=== PATIENT | female | born 1950 | race Caucasian/White ===

== ENCOUNTER → 2018-07-14 10:35 | Outpatient (CLI) | payer OTHER, SELFPAY ==
--- NOTE | 2018-07-14 | DI.RAD.S_ITS ---
PROCEDURE: XR CHEST 2V INDICATIONS: COUGH TECHNIQUE: 2 views of the chest were acquired. COMPARISON: [facility], , CHEST 2 VIEW, 12/23/2015, 16:24. FINDINGS: Surgical changes and devices: None. Lungs and pleura: Lungs are clear. No pleural effusions or pneumothorax. Mediastinum: Mediastinal contours are normal. Heart size is normal. Bones and chest wall: Scoliosis. No suspicious bony abnormalities. Soft tissues appear unremarkable. IMPRESSION: No acute cardiopulmonary disease. Dictated by: Boogie Crouch M.D. on 07/14/2018 at 11:09 Approved by: Boogie Crouch M.D. on 07/14/2018 at 11:10
== END ==
PROVIDERS: PCP Nurse Practitioner Family; Visit Provider Nurse Practitioner Family
DX: R05 Cough (principal)
CPT/HCPCS: 71046; 87400

== ENCOUNTER → 2018-07-14 10:57 | Outpatient (REF) | payer OTHER, SELFPAY | LOC: LAB 10:57 | PROVIDERS: PCP Nurse Practitioner Family; Visit Provider Nurse Practitioner Family | DX: R05 Cough (principal) | CPT/HCPCS: 87400 ==

== ENCOUNTER → 2018-12-27 11:39 | Outpatient (CLI) | payer OTHER, SELFPAY ==
--- NOTE | 2018-12-27 | DI.RAD.S_ITS ---
PROCEDURE: XR CHEST 2V INDICATIONS: CHRONIC COUGH TECHNIQUE: 2 views of the chest were acquired. COMPARISON: [facility], CR, XR CHEST 2V, 07/14/2018, 10:54. FINDINGS: Surgical changes and devices: None. Lungs and pleura: Lungs are clear. No pleural effusions or pneumothorax. Mediastinum: Mediastinal contours are normal. Heart size is normal. Bones and chest wall: No suspicious bony abnormalities. Scoliosis of thoracolumbar spine is again seen, unchanged from prior study. Soft tissues appear unremarkable. IMPRESSION: No acute cardiopulmonary pathology. Dictated by: Memo Elias M.D. on 12/27/2018 at 13:05 Approved by: Memo Elias M.D. on 12/27/2018 at 13:06
== END ==
PROVIDERS: PCP Nurse Practitioner Family; Visit Provider Nurse Practitioner Family
DX: R05 Cough (principal)
CPT/HCPCS: 71046

== ENCOUNTER → 2019-05-04 08:11 | Outpatient (CLI) | payer OTHER, SELFPAY ==
--- NOTE | 2019-05-04 | DI.MG.S_ITS ---
BILATERAL DIGITAL SCREENING MAMMOGRAM 3D/2D WITH CAD: 05/04/2019 CLINICAL: Routine screening. Family history of breast cancer. Comparison is made to exams dated: 01/31/2018 mammogram, 01/17/2018 mammogram - [facility], 10/15/2016 mammogram, and 09/18/2015 mammogram - [facility]. The tissue of both breasts is heterogeneously dense. This may lower the sensitivity of mammography. Current study was also evaluated with a Computer Aided Detection (CAD) system. There is a biopsy clip in the right breast. No significant masses, calcifications, or other findings are seen in either breast. There has been no significant interval change. IMPRESSION: NEGATIVE There is no mammographic evidence of malignancy. A 1 year screening mammogram is recommended. This exam was interpreted at Station ID: [id number]. NOTE: For mammograms, a report in lay terms will be sent to the patient. Approximately 15% of breast malignancies will not be visualized mammographically. In the management of a palpable breast mass, a negative mammogram must not discourage biopsy of a clinically suspicious lesion. Electronically Signed By: Rosas marie/marcela:05/04/2019 18:15:47 letter sent: Normal Exam ACR BI-RADS Category 1: Negative 3341F
== END ==
PROVIDERS: PCP Nurse Practitioner Family; Visit Provider Nurse Practitioner Family
DX: Z12.31 Encounter for screening mammogram for malignant neoplasm of breast (principal); Z80.3 Family history of malignant neoplasm of breast
CPT/HCPCS: 77063; 77067

== ENCOUNTER → 2019-06-07 09:28 | Outpatient (CLI) | payer OTHER, SELFPAY ==
[2019-06-07 10:23] LABS: Add Manual Diff / Slide Review NO; Basophils Absolute Auto 100 /uL (0-100); Basophils Percent Auto 1.1 % (0-2); Eosinophils Absolute Auto 100 /uL (0-450); Eosinophils Percent Auto 1.8 % (2-4); Hematocrit 40.4 % (36-46); Hemoglobin 13.8 g/dL (12.0-16.0); Lymphocytes Absolute Auto 2300 /uL (1100-4500); Lymphocytes Percent Auto 34.6 % (25-40); Mean Corpuscular HGB Conc 34.2 % (30-36); Mean Corpuscular Hemoglobin 31.7 PG (26-34); Mean Corpuscular Volume 92.7 fL (80-100); Monocytes Absolute Auto 500 /uL (0-900); Monocytes Percent Auto 7.9 % (3-14); Neutrophils Absolute Auto 3600 /uL (1500-7000); Neutrophils Percent Auto 54.6 % (50-75); Platelet Count 307 X10^3/uL (150-400); Red Blood Cell Count 4.36 X10^6/uL (4.0-5.2); Red Cell Distribution Width 13.2 % (11.6-14.8); White Blood Cell Count 6.7 X10^3/uL (4.5-11.0)
[2019-06-07 10:58] LABS: Alanine Aminotransferase 22 IU/L (<35); Albumin 4.2 g/dL (3.5-5.0); Albumin Globulin Ratio 1.4 (1.0-2.8); Alkaline Phosphatase 106 U/L (38-126); Aspartate Aminotransferase 24 IU/L (14-36); Bilirubin Total 0.7 mg/dL (0.2-1.3); Blood Urea Nitrogen 16 mg/dL (7-17); Calcium 9.9 mg/dL (8.4-10.2); Carbon Dioxide 28 mmol/L (22-32); Chloride 104 mmol/L (98-107); Cholesterol 201 mg/dL (140-199); Estimated Glomerular Filt Rate > 60.0 mL/min (>60); Globulin 3.1 g/dL (1.7-4.1); Glucose 96 mg/dL (80-110); HDL Cholesterol 59 mg/dL (40-60); HEMOLYSIS < 15 (0-50); LDL Cholesterol Calculated 126 mg/dL (<100); Potassium 4.1 mmol/L (3.4-5.1); Sodium 140 mmol/L (137-145); Total Protein 7.3 g/dL (6.3-8.2); Triglycerides 79 mg/dL (35-150)
== END ==
PROVIDERS: PCP Internal Medicine; Referring Provider Internal Medicine; Visit Provider Internal Medicine
DX: I10 Essential (primary) hypertension (principal)
CPT/HCPCS: 36415; 80053; 80061; 85025

== ENCOUNTER → 2020-05-27 10:10 | Outpatient (CLI) | payer OTHER, SELFPAY ==
--- NOTE | 2020-05-27 | DI.MG.S_ITS ---
BILATERAL DIGITAL SCREENING MAMMOGRAM 3D/2D WITH CAD: 05/27/2020 CLINICAL: Routine screening. Family history of breast cancer. Comparison is made to exams dated: 01/17/2018 mammogram - [facility], 10/15/2016 mammogram, and 09/18/2015 mammogram - [facility]. The tissue of both breasts is heterogeneously dense. This may lower the sensitivity of mammography. Current study was also evaluated with a Computer Aided Detection (CAD) system. There is a biopsy clip in the right breast. There also are benign post operative findings in the left breast. No significant masses, calcifications, or other findings are seen in either breast. There has been no significant interval change. IMPRESSION: BENIGN There is no mammographic evidence of malignancy. A 1 year screening mammogram is recommended. This exam was interpreted at Station ID: [id number]. NOTE: For mammograms, a report in lay terms will be sent to the patient. Approximately 15% of breast malignancies will not be visualized mammographically. In the management of a palpable breast mass, a negative mammogram must not discourage biopsy of a clinically suspicious lesion. Electronically Signed By: Spenser corley/marcela:05/27/2020 11:15:36 letter sent: Normal Exam ACR BI-RADS Category 2: Benign Finding(s) 3342F
== END ==
PROVIDERS: PCP Internal Medicine; Referring Provider Internal Medicine; Visit Provider Internal Medicine
DX: Z12.31 Encounter for screening mammogram for malignant neoplasm of breast (principal); Z80.3 Family history of malignant neoplasm of breast; Z13.820 Encounter for screening for osteoporosis; M81.0 Age-related osteoporosis without current pathological fracture; Z78.0 Asymptomatic menopausal state; Z72.0 Tobacco use
CPT/HCPCS: 77063; 77067; 77080; 77081

== ENCOUNTER → 2020-07-11 09:16 | Outpatient (CLI) | payer MEDICARE, SELFPAY ==
[2020-07-11] MEDS: COVID-19 VACC, Ad26(JANSSEN)/PF 0.5 ML IM (09:23)
== END ==
PROVIDERS: PCP Internal Medicine; Visit Provider Internal Medicine
DX: Z23 Encounter for immunization (principal)
CPT/HCPCS: 0031A; 91303

== ENCOUNTER → 2021-08-22 10:38 | Outpatient (CLI) | payer OTHER, SELFPAY ==
--- NOTE | 2021-08-22 10:40 | DI.MG.S_ITS ---
BILATERAL DIGITAL SCREENING MAMMOGRAM 3D/2D WITH CAD: 08/22/2021 CLINICAL: Routine screening. Family history of breast cancer. Comparison is made to exams dated: 05/27/2020 mammogram, 05/04/2019 mammogram - [facility], 01/31/2018 mammogram, and 01/17/2018 mammogram - [facility]. The tissue of both breasts is heterogeneously dense. This may lower the sensitivity of mammography. Current study was also evaluated with a Computer Aided Detection (CAD) system. There is a biopsy clip in the right breast. There also are benign post operative findings in the left breast. No significant masses, calcifications, or other findings are seen in either breast. There has been no significant interval change. IMPRESSION: BENIGN There is no mammographic evidence of malignancy. A 1 year screening mammogram is recommended. This exam was interpreted at Station ID: [id number]. NOTE: For mammograms, a report in lay terms will be sent to the patient. Approximately 15% of breast malignancies will not be visualized mammographically. In the management of a palpable breast mass, a negative mammogram must not discourage biopsy of a clinically suspicious lesion. Electronically Signed By: Spenser corley/marcela:08/22/2021 14:39:03 letter sent: Normal Exam ACR BI-RADS Category 2: Benign Finding(s) 3342F
== END ==
PROVIDERS: PCP Internal Medicine; Referring Provider Internal Medicine; Visit Provider Internal Medicine
DX: Z12.31 Encounter for screening mammogram for malignant neoplasm of breast (principal); Z80.3 Family history of malignant neoplasm of breast
CPT/HCPCS: 77063; 77067

== ENCOUNTER → 2022-06-17 10:31 | Outpatient (CLI) | payer OTHER, SELFPAY | PROVIDERS: PCP Internal Medicine; Referring Provider Internal Medicine; Visit Provider Internal Medicine | DX: Z78.0 Asymptomatic menopausal state; Z13.820 Encounter for screening for osteoporosis; Z92.23 Personal history of estrogen therapy; Z92.241 Personal history of systemic steroid therapy | CPT/HCPCS: 77080 ==

== ENCOUNTER → 2022-08-24 14:04 | Outpatient (CLI) | payer OTHER, SELFPAY ==
--- NOTE | 2022-08-24 | DI.MG.S_ITS ---
BILATERAL DIGITAL SCREENING MAMMOGRAM 3D/2D WITH CAD: 08/24/2022 CLINICAL: Routine screening. Family history of breast cancer. Comparison is made to exams dated: 08/22/2021 mammogram, 05/27/2020 mammogram, and 05/04/2019 mammogram - [facility]. Both breasts are heterogeneously dense, which may obscure small masses (category c / 51-75% glandular tissue). Current study was also evaluated with a Computer Aided Detection (CAD) system. There is a biopsy clip in the right breast. There also are benign post operative findings in the left breast. No significant masses, calcifications, or other findings are seen in either breast. There has been no significant interval change. IMPRESSION: BENIGN There is no mammographic evidence of malignancy. A 1 year screening mammogram is recommended. Based on the Tyrer Cuzick model (a risk assessment model) the patient's lifetime risk is 3.8% and her 10 year risk is 3.1%. According to the ACR, ACS, and NCCN guidelines, an annual breast MRI exam along with mammogram is recommended if the patient's lifetime risk is 20% or greater. This exam was interpreted at Station ID: [id number]. NOTE: For mammograms, a report in lay terms will be sent to the patient. Approximately 15% of breast malignancies will not be visualized mammographically. In the management of a palpable breast mass, a negative mammogram must not discourage biopsy of a clinically suspicious lesion. Electronically Signed By: Spike ma/marcela:08/24/2022 14:29:49 letter sent: Normal Exam ACR BI-RADS Category 2: Benign Finding(s) 3342F
== END ==
PROVIDERS: PCP Internal Medicine; Referring Provider Internal Medicine; Visit Provider Internal Medicine
DX: Z12.31 Encounter for screening mammogram for malignant neoplasm of breast (principal)
CPT/HCPCS: 77063; 77067

== ENCOUNTER → 2023-02-16 09:45 | Outpatient (CLI) | payer OTHER, SELFPAY ==
--- NOTE | 2023-02-16 09:58 | DI.CT.S_ITS ---
PROCEDURE: CT KIDNEY URETER BLADDER (KUB) INDICATIONS: gross hematuria TECHNIQUE: Axial sections were acquired from the lung bases to the pubic symphysis. Coronal and sagittal reformats were performed. For radiation dose reduction, the following was used: automated exposure control, adjustment of mA and/or kV according to patient size. COMPARISON: None. FINDINGS: Image quality: Excellent. Lung bases: Unremarkable. Heart: No significant findings. URINARY: Right Kidney: Probable tiny vascular calcification, right hilum. Otherwise unremarkable. No other possible stones or hydronephrosis. Right Ureter: No hydroureter. Left Kidney: No stones or hydronephrosis. Left Ureter: No hydroureter. Bladder: Normal wall thickness. No stones. ABDOMEN: Liver: Unremarkable. Gallbladder: Unremarkable without calcified gallstones. Biliary ducts: Unremarkable. Pancreas: Unremarkable. Spleen: Unremarkable. Adrenal Glands: There is a 2.9 x 2.1 cm left adrenal nodule with a water Hounsfield measurement of 12.4, highly likely a lipid-laden left adrenal adenoma.. Stomach and Bowel: Extensive sigmoid diverticulosis without evidence of diverticulitis. Peritoneum: No abnormal intraperitoneal fluid. No free air. Ventral Wall: No hernia. Abdominal Nodes: No enlarged retroperitoneal or mesenteric lymph nodes. Vessels: Aorta and inferior vena cava are normal in size. PELVIS: Pelvic Organs: Unremarkable. Pelvic Nodes: Unremarkable. Miscellaneous: No inguinal hernias are seen. Bones: Unremarkable. S shaped thoracolumbar scoliotic curvature. No lytic or blastic bony lesions or compression fractures. IMPRESSION: 1. No renal stone, ureteral stone, or hydronephrosis. 2. Extensive sigmoid diverticulosis without evidence of diverticulitis. 3. No acute abdominal process. 4. A 2.9 cm left adrenal nodule is very likely a lipid-laden benign adenoma. Dictated by: Silvano Guaman M.D. on 02/16/2023 at 12:51 Approved by: Silvano Guaman M.D. on 02/16/2023 at 12:58
== END ==
PROVIDERS: PCP Internal Medicine; Referring Provider Internal Medicine; Visit Provider Internal Medicine
DX: R31.0 Gross hematuria (principal); K57.90 Diverticulosis of intestine, part unspecified, without perforation or abscess without bleeding; E27.8 Other specified disorders of adrenal gland
CPT/HCPCS: 74176

== ENCOUNTER → 2023-04-06 10:54 | Outpatient (CLI) | payer OTHER, SELFPAY | PROVIDERS: PCP Internal Medicine; Visit Provider Specialist | DX: R31.0 Gross hematuria (principal); N95.2 Postmenopausal atrophic vaginitis | CPT/HCPCS: 51798; 52000; 81002; 87086; 99215 ==

== ENCOUNTER → 2023-04-20 11:14 | Outpatient (CLI) | payer OTHER, SELFPAY ==
[2023-04-20 13:04] LABS: BUN Creatinine Ratio 32.1 (6-22); Blood Urea Nitrogen 17 mg/dL (7-17); Estimated Glomerular Filt Rate > 60 mL/min (>60)
== END ==
PROVIDERS: PCP Internal Medicine; Referring Provider Specialist; Visit Provider Specialist
DX: R31.0 Gross hematuria (principal)
CPT/HCPCS: 36415; 82565; 84520

== ENCOUNTER → 2023-04-23 12:49 | Outpatient (CLI) | payer OTHER, SELFPAY ==
--- NOTE | 2023-04-23 13:20 | DI.CT.S_ITS ---
PROCEDURE: CT IVP A/P W/WO INDICATIONS: Hematuria TECHNIQUE: Optional 5 mm thick noncontrast images acquired from the diaphragm to the symphysis pubis. After the administration of intravenous contrast, 5 mm thick images acquired from the diaphragm to the symphysis pubis after a 10-minute delay. 2 mm thick coronal and sagittal reformats were then performed of the kidneys and ureters. For radiation dose reduction, the following was used: automated exposure control, adjustment of mA and/or kV according to patient size. COMPARISON: [facility], CT, CT KIDNEY URETER BLADDER (KUB), 02/16/2023, 9:54. FINDINGS: Image quality: Diagnostic. Kidneys and Ureters: Both kidneys are normal in size, without hydronephrosis or nephrolithiasis. No perinephric fat stranding. There is normal bilateral renal enhancement. Small benign renal cysts. Renal calyces appear normal in morphology when filled with contrast. 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 The ureters are duplicated to the level of the bladder insertion. Opacified portions of both ureters demonstrate normal caliber Bladder: Bladder wall thickness is normal. No calcified bladder stones. OTHER: Lung bases: Unremarkable. Heart: No significant findings. Liver: No solid mass. A few small cysts. Gallbladder: Decompressed. Biliary ducts: No biliary dilation. Pancreas: No ductal dilation. Spleen: Size is within normal limits. Adrenal Glands: Left adrenal nodule measuring 2.4 cm, (4/62), unchanged. This measures 29 Hounsfield units on the noncontrast series. This measures 111 Hounsfield units. Stomach and Bowel: Normal colonic caliber, without significant wall thickening. Diverticulosis. The appendix is not identified. Peritoneum: No abnormal intraperitoneal fluid. No free air. Ventral Wall: No hernia. Abdominal Nodes: No retroperitoneal or mesenteric adenopathy by size criteria. Vessels: Aorta and inferior vena cava are normal in size. PELVIS: Pelvic Organs: Unremarkable. Pelvic Nodes: No enlarged lymph nodes. Miscellaneous: No inguinal hernias are seen. Bones: No aggressive osseous abnormality. Scoliosis. IMPRESSION: 1. No kidney stones. No hydronephrosis. 2. No solid renal mass. 3. No upper urinary tract filling defect. 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 4. Left adrenal nodule measuring 2.4 cm. Indeterminate. This could be more definitively characterized with adrenal protocol MRI. Dictated by: Dipak Ngo M.D. on 04/23/2023 at 15:05 Approved by: Dipak Ngo M.D. on 04/23/2023 at 15:19
== END ==
PROVIDERS: PCP Internal Medicine; Referring Provider Specialist; Visit Provider Specialist
DX: R31.0 Gross hematuria (principal); E27.9 Disorder of adrenal gland, unspecified
CPT/HCPCS: 74178; Q9967

== ENCOUNTER → 2023-09-17 14:46 | Outpatient (CLI) | payer OTHER, SELFPAY ==
--- NOTE | 2023-09-17 14:48 | DI.MG.S_ITS ---
BILATERAL DIGITAL SCREENING MAMMOGRAM 3D/2D WITH CAD: 09/17/2023 CLINICAL: Routine screening. Family history of breast cancer. Comparison is made to exams dated: 08/24/2022 mammogram, 08/22/2021 mammogram, and 05/27/2020 mammogram - [facility]. Both breasts are heterogeneously dense, which may obscure small masses (category c / 51-75% glandular tissue). Current study was also evaluated with a Computer Aided Detection (CAD) system. There is a biopsy clip in the right breast. There also are benign post operative findings in the left breast. No significant masses, calcifications, or other findings are seen in either breast. There has been no significant interval change. IMPRESSION: BENIGN There is no mammographic evidence of malignancy. A 1 year screening mammogram is recommended. Based on the Tyrer Cuzick model (a risk assessment model) the patient's lifetime risk is 3.6% and her 10 year risk is 3.2%. According to the ACR, ACS, and NCCN guidelines, an annual breast MRI exam along with mammogram is recommended if the patient's lifetime risk is 20% or greater. This exam was interpreted at Station ID: [id number]. NOTE: For mammograms, a report in lay terms will be sent to the patient. Approximately 15% of breast malignancies will not be visualized mammographically. In the management of a palpable breast mass, a negative mammogram must not discourage biopsy of a clinically suspicious lesion. Electronically Signed By: Spike ma/marcela:09/17/2023 16:55:31 letter sent: Normal Exam ACR BI-RADS Category 2: Benign Finding(s) 3342F
== END ==
PROVIDERS: PCP Internal Medicine; Referring Provider Internal Medicine; Visit Provider Internal Medicine
DX: Z12.31 Encounter for screening mammogram for malignant neoplasm of breast (principal); Z80.3 Family history of malignant neoplasm of breast; R92.333 Mammographic heterogeneous density, bilateral breasts
CPT/HCPCS: 77063; 77067

== ENCOUNTER → 2023-12-29 15:15 | Outpatient (CLI) | payer OTHER, SELFPAY ==
--- NOTE | 2023-12-29 15:16 | DI.CT.S_ITS ---
PROCEDURE: CT LUNG LOW DOSE SCREENING INDICATIONS: screening for lung cancer, personal hx of nicotine TECHNIQUE: Noncontrast 2.0-2.5 mm thick sections acquired from the pulmonary apices to the posterior costophrenic angles. 7 mm thick axial MIP, and 5 mm coronal and sagittal reformats were then acquired. For radiation dose reduction, the following was used: automated exposure control, adjustment of mA and/or kV according to patient size. COMPARISON: None. FINDINGS: Image quality: Diagnostic. Lower Neck: No enlarged lymph nodes. Thyroid: No thyroid nodules which require sonographic follow up, per consensus guidelines. Axillae: No enlarged lymph nodes. Chest Wall: Unremarkable. Bones: Severe degenerative change in the left shoulder with a collection calcifications anterior and inferior to the glenohumeral joint. Scoliosis. No vertebral body fractures. Lungs and Pleura: 3 mm anterolateral right upper lobe subpleural nodule containing calcification. Lateral right middle lobe subpleural 3 mm nodule also containing punctate calcification, 3/158. Occasional micro nodules left upper lobe too small to measure. Posterolateral left lower lobe subpleural calcification measuring 2 mm. No suspicious lung nodules. Mild emphysema. Mild bilateral central peribronchial thickening. No bronchiectasis. Occasional mucous plugging. No pleural effusion. Heart: Heart size is normal. No pericardial effusion. Moderate coronary artery calcification. Thoracic Vessels: The aorta and pulmonary arteries demonstrate normal size. Mild aortic arch calcification. Mediastinum and Payton: No enlarged lymph nodes. Esophagus: No wall thickening. No hiatal hernia. Upper Abdomen: Indistinct left adrenal mass measuring roughly 2.5 cm with Hounsfield units approximately 30. Visible portions of upper abdominal organs are otherwise normal. IMPRESSION: 3 mm right lung solid nodules with calcification are suggestive of granulomas. No suspicious lung nodules. Emphysema and peribronchial thickening suggesting chronic bronchitis. Moderate coronary artery calcification. 2.5 cm left adrenal mass which is indeterminate given Hounsfield units greater than 20. Consider adrenal protocol CT or MRI for further characterization. LUNG-RADS two; continued annual screening, if eligible. Clinically Significant Non-pulmonary Findings: Left adrenal mass, coronary artery calcification. Dictated by: Sandy Cervantes M.D. on 12/30/2023 at 10:12 Approved by: Sandy Cervantes M.D. on 12/30/2023 at 10:25
== END ==
PROVIDERS: PCP Internal Medicine; Referring Provider Internal Medicine; Visit Provider Internal Medicine
DX: Z12.2 Encounter for screening for malignant neoplasm of respiratory organs (principal); R91.8 Other nonspecific abnormal finding of lung field; J43.9 Emphysema, unspecified; I25.10 Atherosclerotic heart disease of native coronary artery without angina pectoris; E27.9 Disorder of adrenal gland, unspecified; I70.0 Atherosclerosis of aorta; M41.9 Scoliosis, unspecified; F17.210 Nicotine dependence, cigarettes, uncomplicated
CPT/HCPCS: 71271

== ENCOUNTER → 2024-01-10 07:37 | Outpatient (CLI) | payer OTHER, SELFPAY ==
--- NOTE | 2024-01-10 09:30 | DI.MRI.S_ITS ---
PROCEDURE: MR ABDOMEN ADRENAL PROTOCOL INDICATIONS: LEFT ADRENAL MASS TECHNIQUE: Coronal HASTE, axial 2-D FLASH in- and [id number] with subtractions from the hepatic dome to the iliac crests. COMPARISON: [facility], CT, CT LUNG LOW DOSE SCREENING, 12/29/2023, 15:25. FINDINGS: Image quality: Diagnostic. Adrenal Glands: 2.8 centimeter left adrenal nodule without signal dropout on the out of phase sequence. Additionally, there is small focus of T1 hyperintense signal (series 7, image 38). OTHER: Lung bases: Unremarkable. Liver: No solid mass. Gallbladder: No gallstones or wall thickening. Biliary ducts: No biliary dilation. Pancreas: No ductal dilation. Spleen: Size is within normal limits. Kidneys and Ureters: No hydronephrosis. No solid mass. No complex renal cystic lesion which requires follow up. Stomach and Bowel: Normal colonic caliber, without significant wall thickening. Colonic diverticulosis without evidence of diverticulitis. Peritoneum: No abnormal intraperitoneal fluid. No free air. Ventral Wall: No hernia. Abdominal Nodes: No retroperitoneal or mesenteric adenopathy by size criteria. Vessels: Aorta and inferior vena cava are normal in size. Pelvis: No pelvic mass. Bones: No aggressive osseous abnormality. IMPRESSION: 2.8 centimeter left adrenal nodule with indeterminate signal characteristics; there is no signal dropout on the out of phase sequence and there is a small focus of T1 hyperintense signal which may indicate hemorrhage. Findings do not indicate adrenal adenoma, indicate metastasis or pheochromocytoma. Consider tissue sampling. Dictated by: Jean Paul Funk M.D. on 01/10/2024 at 12:12 Approved by: Jean Paul Funk M.D. on 01/10/2024 at 12:15
--- NOTE | 2024-01-10 21:34 | DI.NM.S_ITS ---
DATE OF SERVICE: 01/10/2024 PROCEDURE: Exercise treadmill stress test without imaging. ORDERING PROVIDER: JASON Delgado INDICATIONS: The patient is a 73-year-old female with coronary calcification noted on CT scanning. FINDINGS: 1. The patient was able to exercise for 4 minutes 15 seconds on standard Pito protocol suggesting moderate-severely reduced exercise capacity with an GILBERTO of +44%, achieving 4.5 METs. 2. She had a normal heart rate and blood pressure response to exercise, achieving a maximum heart rate of 138 bpm (95% of her predicted maximum) and a peak blood pressure 194/60. Oxygen saturation remained 94% at peak exercise. 3. She had no chest pain or anginal symptoms with exercise but reported dizziness at peak exercise despite a normal heart rate and blood pressure. 4. Her resting ECG shows sinus rhythm with normal ST segments. There are no significant ST-segment shifts or arrhythmias. IMPRESSION: 1. Normal exercise treadmill stress test for ischemia although with moderate-severely reduced exercise capacity. 2. No angina or arrhythmias with stress, but reported limiting dizziness at peak exercise despite a normal heart rate and blood pressure. Ava Meade - /yuki/NM doc#: [id number]/job#: [id number] dd: 01/10/2024 16:58:00 dt: 01/10/2024 21:22:00 DICTATING /COPIES TO: Mario Barillas MD; JASON Delgado COPIES MNE: NATALY;
== END ==
LOC: DI 07:38
PROVIDERS: PCP Internal Medicine; Referring Provider Internal Medicine; Visit Provider Internal Medicine
DX: I25.10 Atherosclerotic heart disease of native coronary artery without angina pectoris (principal); E27.8 Other specified disorders of adrenal gland; D44.12 Neoplasm of uncertain behavior of left adrenal gland; K57.90 Diverticulosis of intestine, part unspecified, without perforation or abscess without bleeding
CPT/HCPCS: 74181; 93017

== ENCOUNTER → 2024-03-10 08:27 | Outpatient (CLI) | payer OTHER, SELFPAY ==
[2024-03-10 09:14] LABS: BUN Creatinine Ratio 27.7 (6-22); Blood Urea Nitrogen 13 mg/dL (7-17); Carbon Dioxide 26 mmol/L (22-32); Chloride 105 mmol/L (98-107); Estimated Glomerular Filt Rate > 60 mL/min (>60); Glucose 106 mg/dL (80-110); HEMOLYSIS < 15 (0-50); Sodium 136 mmol/L (137-145)
[2024-03-16 08:13] LABS: Metanephrine,Plasma 58.9 pg/mL (0.0-88.0)
[2024-03-23 17:09] LABS: Plama Renin, LC/MS/MS 2.2 ng/mL/hr (.)
== END ==
PROVIDERS: PCP Internal Medicine; Referring Provider Surgery; Visit Provider Surgery
DX: E27.8 Other specified disorders of adrenal gland (principal)
CPT/HCPCS: 36415; 80048; 82088; 82533; 83835; 84244

== ENCOUNTER → 2025-02-26 07:33 | Outpatient (CLI) | payer MEDICARE, SELFPAY ==
[2025-02-26 08:27] LABS: Add Manual Diff / Slide Review NO; Hematocrit 41.1 % (36-46); Hemoglobin 14.0 g/dL (12.0-16.0); Lymphocytes Absolute Auto 2500 /uL (1100-4500); Mean Corpuscular HGB Conc 34.1 % (30-36); Mean Corpuscular Hemoglobin 30.9 PG (26-34); Mean Corpuscular Volume 90.6 fL (80-100); Platelet Count 338 X10^3/uL (150-400)
--- NOTE | 2025-02-26 08:43 | DI.MRI.S_ITS ---
PROCEDURE: MR ABDOMEN ADRENAL PROTOCOL INDICATIONS: Adrenal mass TECHNIQUE: Coronal HASTE, axial 2-D FLASH in- and [id number] with subtractions from the hepatic dome to the iliac crests. COMPARISON: [facility], CT, CT IVP A/P W/WO, 04/23/2023, 13:01. [facility], MR, MR ABDOMEN ADRENAL PROTOCOL, 01/10/2024, 8:57. FINDINGS: Image quality: Diagnostic Lower chest: Unremarkable Liver: On this noncontrast study, no discrete lesion is identified Gallbladder and biliary system: Unremarkable, nondilated Pancreas: No ductal dilation Spleen: Nonenlarged Adrenals: Again seen is a left adrenal nodule, measuring 2.8 x 2.1 cm on image /, stable compared to 01/10/2024 and 04/23/2023. Only minimal signal loss is seen on opposed phase imaging to indicate intravoxel fat. Prior intrinsic T1 signal is less conspicuous. Kidneys: No hydronephrosis. Cyst is seen in the inferior right kidney. Vessels and lymph nodes: No abdominal aortic aneurysm where visualized. There are no enlarged lymph nodes by size criteria in the field of view Bowel and peritoneum: No bowel obstruction. Moderate to large colonic fecal loading. No drainable abscess or ascites Body wall: Unremarkable Bones: Rightward spinal curvature and degenerative osseous changes IMPRESSION: Similar left adrenal nodule compared to 2023 and 2022 imaging. No signal loss on chemical shift sequences to suggest intravoxel fat, typically seen with adenoma. This nodule remains indeterminate, but stable in size from prior, likely indolent or benign. Decreased intrinsic T1 signal on today's study, likely decreased hemorrhage Correlate with biochemical/laboratory testing for functional status of the adrenal nodule. Dictated by: Spike Cleaning M.D. on 02/26/2025 at 9:32 Approved by: Spike Cleaning M.D. on 02/26/2025 at 9:38
[2025-02-26 08:47] LABS: Alanine Aminotransferase 21 IU/L (<35); Albumin 4.0 g/dL (3.5-5.0); Albumin Globulin Ratio 1.3 (1.0-2.8); Alkaline Phosphatase 113 U/L (38-126); Blood Urea Nitrogen 17 mg/dL (7-17); Calcium 10.2 mg/dL (8.4-10.2); Carbon Dioxide 27 mmol/L (22-32); Chloride 103 mmol/L (98-107); Cholesterol 130 mg/dL (140-199); Estimated Glomerular Filt Rate > 60 mL/min (>60); Globulin 3.1 g/dL (1.7-4.1); Glucose 97 mg/dL (70-99); HDL Cholesterol 54 mg/dL (40-60); HEMOLYSIS < 15 (0-50); Potassium 4.3 mmol/L (3.4-5.1); Sodium 137 mmol/L (137-145); Total Protein 7.1 g/dL (6.3-8.2); Triglycerides 58 mg/dL (35-150)
== END ==
PROVIDERS: PCP Family Medicine; Referring Provider Family Medicine; Visit Provider Family Medicine
DX: E27.8 Other specified disorders of adrenal gland (principal); E78.5 Hyperlipidemia, unspecified; I10 Essential (primary) hypertension; N28.1 Cyst of kidney, acquired
CPT/HCPCS: 36415; 74181; 80053; 80061; 85025